=== PATIENT | male | born 1955 | race Caucasian/White ===

== ENCOUNTER → 2023-10-24 09:53 | Outpatient (REF) | payer OTHER, SELFPAY | LOC: HWCARD 09:53 | PROVIDERS: ATTENDING PHYSICIAN Physical Medicine & Rehabilitation; FAMILY PHYSICIAN Family Medicine | DX: Z01.818 Encounter for other preprocedural examination (principal) | CPT/HCPCS: 93005 ==

== ENCOUNTER → 2023-12-07 15:22 | Outpatient (REF) | payer OTHER, SELFPAY | LOC: MRI 3T 15:22 | PROVIDERS: ATTENDING PHYSICIAN Internal Medicine Endocrinology, Diabetes & Metabolism; FAMILY PHYSICIAN Family Medicine | DX: D35.2 Benign neoplasm of pituitary gland (principal) | CPT/HCPCS: 70553; A9575 ==

== ENCOUNTER → 2024-05-22 07:48 | Outpatient (REF) | payer OTHER, SELFPAY | LOC: HWRCS 07:48 | PROVIDERS: ATTENDING PHYSICIAN Nurse Practitioner; FAMILY PHYSICIAN Family Medicine | DX: I25.5 Ischemic cardiomyopathy (principal) | CPT/HCPCS: 93306 ==

== ENCOUNTER → 2024-06-06 12:19 | Outpatient (REF) | payer OTHER, SELFPAY | LOC: HWRAD 12:19 | PROVIDERS: ATTENDING PHYSICIAN Internal Medicine Endocrinology, Diabetes & Metabolism; FAMILY PHYSICIAN Family Medicine | DX: Z13.820 Encounter for screening for osteoporosis (principal) | CPT/HCPCS: 77080 ==

== ENCOUNTER → 2024-06-09 15:06 | Outpatient (REF) | payer OTHER, SELFPAY | LOC: HWRAD 15:06 | PROVIDERS: ATTENDING PHYSICIAN Family Medicine | DX: R42 Dizziness and giddiness (principal) | CPT/HCPCS: 93880 ==

== ENCOUNTER → 2024-06-19 11:03 | Outpatient (REF) | payer OTHER, SELFPAY | LOC: HWRCS 11:03 | PROVIDERS: ATTENDING PHYSICIAN Internal Medicine Cardiovascular Disease; FAMILY PHYSICIAN Family Medicine | DX: I47.29 Other ventricular tachycardia (principal) | CPT/HCPCS: 78452; 93017; A9500; J2785 ==

== ENCOUNTER 2024-07-11 09:48 | Day surgery (SDC) | payer OTHER, SELFPAY ==
[2024-07-09 11:28] LABS: % Basophils 0.7 % (0-2); % Eosinophils 2.1 % (0-6); % Immature Granulocytes 0.3 % (0-0.5); % Lymphocytes 39.7 % (20.5-51.1); % Monocytes 8.4 % (1.7-9.3); % Neutrophils 48.8 % (42.2-75.2); Absolute Basophils 0.1 10^3/uL (0-0.2); Absolute Eosinophils 0.2 10^3/uL (0-0.7); Absolute Lymphocytes 4.1 10^3/uL (1.2-3.4); Absolute Monocytes 0.9 10^3/uL (0.1-0.6); Absolute Neutrophils 5.1 10^3/uL (1.4-6.5); Hematocrit 49.9 % (39.0-52.0); Hemoglobin 16.2 g/dL (13.0-18.0); Mean Corp Hgb Conc. 32.5 g/dL (33.0-37.0); Mean Corpuscular Hgb 28.5 pg (27.0-31.0); Mean Corpuscular Volume 87.9 fL (80.0-94.0); Nucleated Red Blood Cells % 0 % (-); Platelet Count 200 10^3/uL (130-400); Red Blood Cell Count 5.68 10^6/uL (4.70-6.10); Red Cell Dist. Width 14.6 % (11.5-14.5); White Blood Cell Count 10.4 10^3/uL (4.8-10.8)
[2024-07-09 12:13] LABS: ALT (SGPT) 33 U/L (0-50); AST (SGOT) 28 U/L (17-59); Albumin 4.5 g/dl (3.5-5.0); Alkaline Phosphatase 52 U/L (38-126); Blood Urea Nitrogen 25 mg/dl (9-20); Calcium 10.1 mg/dl (8.4-10.2); Carbon Dioxide 27 mmol/L (22-30); Chloride 101 mmol/L (98-107); Glucose 86 mg/dl (70-99); HDL Cholesterol 55 mg/dl; LDL Cholesterol, Calculated 49 mg/dl; Potassium 4.2 mmol/L (3.5-5.1); Sodium 140 mmol/L (135-145); Total Bilirubin 0.8 mg/dl (0.2-1.3); Total Cholesterol 129 mg/dl (50-199); Total Protein 7.8 g/dl (6.3-8.2); Triglyceride 125 mg/dl (10-149); Very Low Density Lipoprotein 25 mg/dl (0-30); eGFR > 60.00
[2024-07-11] VITALS (9 sets, daily range): BP systolic 144–151; BP diastolic 86–94; BMI 34.1
[2024-07-11 10:36] LABS: Glucose - Point of Care 83 mg/dl (70-99)
--- NOTE | 2024-07-11 19:24 | ITS.CL.CATH ---
[facility] - Catheterization
Cardiac Catheterization
Procedure Report:
LEFT HEART CATHETERIZATION
Date of Procedure: July 12, 2023
Referring: Dr. Camron Llamas
PROCEDURES:
1. Left heart catheterization with coronary and single-plane left ventriculography
2. Selective free radial, MCFADDEN (via common femoral arterial access) and nonselective SUZANNE graft angiography (via right radial artery access)
INDICATION: This is a 68-year-old gentleman with a prior history of coronary artery disease. He presented to [facility] with an acute coronary syndrome in September 2003. He was referred for emergent coronary angiography and was found to have
severe multivessel coronary artery disease. He underwent successful balloon angioplasty of the mid circumflex restoring antegrade flow and several days later underwent surgical revascularization with a sequential AVFI-[id number]-crldwyec, SUZANNE-OM, and
free radial-PDA. He was seen by Dr. Llamas as part of a preoperative evaluation prior to laminectomy. His stress study was notable for worsening in LVEF with a large predominantly fixed lateral wall defect. He is now referred for repeat
assessment of coronary anatomy.
ACCESS: Right common femoral artery, 6 [place] sheath. Unfortunately, I could not advance a VALERIE catheter to the right subclavian artery and imaging of the SUZANNE graft proved very difficult. Arterial access was then obtained in the right radial
artery and nonselective imaging of the SUZANNE graft was performed with adequate contrast opacification of the SUZANNE to the obtuse marginal branch as described below
HEMODYNAMICS : (mmHg)
AO (s/d) : 137/80, 103
LV (s/d) : 143/13
LVEDP : 24
CORONARY ANGIOGRAPHY
Dominance: Right
LEFT MAIN: Normal
LEFT ANTERIOR DESCENDING: The LAD arises normally from the left main and has a 50% ostial stenosis at the origin of the first diagonal branch. The second diagonal branch is noted to have competitive flow from the widely patent sequential
[id number]-VER. The mid to distal LAD beyond the second diagonal branch has only minor irregularities but no focal high-grade obstructive stenosis.
CIRCUMFLEX: The circumflex has a high-grade proximal stenosis then becomes 100% occluded in its midportion with a patent SUZANNE graft-OM as described below
RIGHT CORONARY ARTERY: The right coronary artery is a dominant vessel that is heavily calcified and has diffuse noncritical atherosclerosis in its proximal to midportion. The distal right coronary artery has a 90% stenosis and an 80% stenosis in
the crux of the vessel. The PDA is subtotally occluded at its origin with competitive flow noted from a widely patent free radial graft which faintly fills the posterolateral branch with retrograde flow
GRAFT ANGIOGRAPHY:
1. WBVT-daforhrl-HOU: The MCFADDEN graft is anastomosed to the second diagonal branch which fills antegrade and retrograde then continues to the mid LAD which fills antegrade and retrograde from the MCFADDEN touchdown.
2. SUZANNE-OM: The SUZANNE graft was subselectively cannulated from the right radial artery. The SUZANNE graft to the obtuse marginal branch is widely patent and the obtuse marginal branch fills distal beyond the SUZANNE touchdown.
3. Free radial-PDA: The free radial graft to the midportion of the PDA is widely patent. The PDA fills antegrade and retrograde. Faint retrograde flow is noted into the posterolateral branch
LEFT VENTRICULOGRAPHY: Left ventriculography is performed in an RIZO projection. The digital single-plane left ventricular ejection fraction is visually estimated at 25-30% with severe hypokinesis noted in the anterolateral and diaphragmatic portion
of the inferior wall.
SEDATION: 63 minutes of procedural sedation was utilized. An independent anesthesiology medical doctor was present to assist with and help manage the patient's level of consciousness and physiologic status
RADIATION SUMMARY: Fluoro Time (min): 15.4, Dose (mGy): 1163, DAP (Gy.cm2) : 106
Closure Device: 6 [place] Angio-Seal RFA and TR band to right radial artery
CONCLUSION
1. Patent sequential [id number]-HIN, SUZANNE-OM, and free radial graft-PDA
2. Dilated cardiomyopathy
3. Severe campo vessel coronary artery disease as described above
RECOMMENDATIONS
1. Continued medical therapy with risk modification
Copy to: Dr. Camron Llamas
== END 2024-07-11 18:37 | disposition home or self-care (01) ==
LOC: CATH 09:48
PROVIDERS: ATTENDING PHYSICIAN Internal Medicine Interventional Cardiology; FAMILY PHYSICIAN Family Medicine; REFERRING PHYSICIAN Internal Medicine Cardiovascular Disease
DX: I25.10 Atherosclerotic heart disease of native coronary artery without angina pectoris (principal); Z95.1 Presence of aortocoronary bypass graft; I42.0 Dilated cardiomyopathy; I10 Essential (primary) hypertension; E78.5 Hyperlipidemia, unspecified; E11.9 Type 2 diabetes mellitus without complications; E03.9 Hypothyroidism, unspecified; K21.9 Gastro-esophageal reflux disease without esophagitis; Z79.82 Long term (current) use of aspirin; Z79.84 Long term (current) use of oral hypoglycemic drugs; Z79.85 Long-term (current) use of injectable non-insulin antidiabetic drugs
CPT/HCPCS: 99152; 99153; C1894; C1769; 36415; 80053; 80061; 82962; 85025; 93459; C1760; Q9967

== ENCOUNTER → 2024-07-17 08:32 | Outpatient (REF) | payer OTHER, SELFPAY ==
[2024-07-17 13:48] LABS: Glycohemoglobin (HgbA1c) 5.9 % (4.0-5.6)
== END ==
LOC: HWLAB 08:32
PROVIDERS: ATTENDING PHYSICIAN Nurse Practitioner Adult Health
DX: E11.9 Type 2 diabetes mellitus without complications (principal)
CPT/HCPCS: 36415; 83036

== ENCOUNTER → 2024-08-01 14:58 | Outpatient (REF) | payer OTHER, SELFPAY | LOC: HWRAD 14:58 | PROVIDERS: ATTENDING PHYSICIAN Orthopaedic Surgery; FAMILY PHYSICIAN Family Medicine | DX: Z01.818 Encounter for other preprocedural examination (principal) | CPT/HCPCS: 72131 ==

== ENCOUNTER → 2024-08-26 08:56 | Outpatient (REF) | payer OTHER, SELFPAY ==
[2024-08-26 12:08] LABS: Hematocrit 48.3 % (39.0-52.0); Hemoglobin 15.5 g/dL (13.0-18.0)
[2024-08-26 12:49] LABS: PSA, Total - Screen 0.26 ng/ml (0.0-4.0); TSH Reflex To Free T4 1.92 uIU/ml (0.47-4.68)
[2024-08-28 20:24] LABS: 24 Hour Urine Total Volume Random mL; Urine Collection Length Random hr; Urine Free Kappa Light Chains 24.87 mg/L (0.00-32.90); Urine Free Lambda Light Chains 3.91 mg/L (0.00-3.79)
== END ==
LOC: HWLAB 08:56
PROVIDERS: ATTENDING PHYSICIAN Internal Medicine Endocrinology, Diabetes & Metabolism; FAMILY PHYSICIAN Family Medicine; REFERRING PHYSICIAN Physician Assistant
DX: D35.2 Benign neoplasm of pituitary gland (principal); R79.89 Other specified abnormal findings of blood chemistry; R73.03 Prediabetes; E03.9 Hypothyroidism, unspecified; Z68.34 Body mass index [BMI] 34.0-34.9, adult; I25.5 Ischemic cardiomyopathy
CPT/HCPCS: 36415; 82784; 83520; 83521; 84155; 84156; 84165; 84403; 84443; 85014; 85018; 86334; 86335; G0103

== ENCOUNTER 2024-10-10 06:17 | Day surgery (SDC) | payer OTHER, SELFPAY ==
[2024-10-10 11:41] LABS: Glucose - Point of Care 90 mg/dl (70-99)
== END 2024-10-10 13:18 | disposition home or self-care (01) ==
LOC: GI 06:17
PROVIDERS: ATTENDING PHYSICIAN Specialist
DX: K31.89 Other diseases of stomach and duodenum (principal); K20.90 Esophagitis, unspecified without bleeding
CPT/HCPCS: 43239; 82962; 88305; 88342